=== PATIENT | female | born 1960 | race Caucasian/White ===

== ENCOUNTER → 2017-05-15 | Outpatient (CLI) | payer BC ==
[~2017-05-15] MED LIST: ESTROGEN PO
== END ==
LOC: RAD 15:35
PROVIDERS: ATTEND Nurse Practitioner
DX: Z12.31 Encounter for screening mammogram for malignant neoplasm of breast (principal)
CPT/HCPCS: 77067

== ENCOUNTER → 2018-06-04 | Outpatient (CLI) | payer BC ==
--- NOTE | 2018-06-04 19:09 | Diagnostic Imaging Report ---
INDICATION: Routine screening. Comparison is made with prior mammograms from 05/15/2017 and 05/13/2016. 2-D and 3-D bilateral screening mammography was performed with computer-aided detection (CAD) system. FINDINGS: Both breasts are heterogeneously dense, limiting the sensitivity of mammography. The parenchymal pattern is stable. No mass or malignant-appearing microcalcifications are seen. The axillae are unremarkable. IMPRESSION: No mammographic features suspicious for malignancy are identified. ACR BI-RADS Category 1: Negative. Result letter will be mailed to the patient. Note: At least 10% of breast cancer is not imaged by mammography. Dictated by: Dictated on workstation # [id number]
== END ==
LOC: RAD 14:40
PROVIDERS: ATTEND Nurse Practitioner
DX: Z12.31 Encounter for screening mammogram for malignant neoplasm of breast (principal)
CPT/HCPCS: 77067

== ENCOUNTER → 2019-05-12 | Outpatient (CLI) | payer BC | LOC: CARD 12:38 | PROVIDERS: ATTEND Internal Medicine Interventional Cardiology | DX: E78.01 Familial hypercholesterolemia (principal); I10 Essential (primary) hypertension; R06.02 Shortness of breath | CPT/HCPCS: 93306 ==

== ENCOUNTER → 2019-07-01 | Outpatient (CLI) | payer BC ==
--- NOTE | 2019-07-02 10:42 | Diagnostic Imaging Report ---
INDICATION: Routine screening. COMPARISON is made with prior mammogram from 06/04/2018 and 05/15/2017. 2-D and 3-D bilateral screening mammography was performed with CAD. Both breasts are heterogeneously dense, limiting the sensitivity of mammography. The parenchymal pattern is stable. No dominant mass or malignant appearing microcalcifications are seen. Axillae are unremarkable. IMPRESSION: BI-RADS Category 1 No mammographic features suspicious for malignancy are identified. ACR BI-RADS Category 1: Negative. Result letter will be mailed to the patient. Note: At least 10% of breast cancer is not imaged by mammography. Dictated by: Dictated on workstation # [id number]
== END ==
LOC: RAD 15:26
PROVIDERS: ATTEND Nurse Practitioner
DX: Z12.31 Encounter for screening mammogram for malignant neoplasm of breast (principal)
CPT/HCPCS: 77067

== ENCOUNTER → 2020-07-21 | Outpatient (CLI) | payer BC ==
--- NOTE | 2020-07-24 10:33 | Diagnostic Imaging Report ---
INDICATION: Routine screening. Comparison is made with prior mammogram from 07/01/2019 and 06/04/2018. 2-D and 3-D bilateral screening mammography was performed with CAD. Both breasts are heterogeneously dense, limiting the sensitivity of mammography. Occasional benign calcifications are noted. No mass or malignant-appearing microcalcifications are seen. Axillae are unremarkable. IMPRESSION: BI-RADS Category 2 No mammographic features suspicious for malignancy are identified. ACR BI-RADS Category 2: Benign findings. Result letter will be mailed to the patient. Note: At least 10% of breast cancer is not imaged by mammography. Dictated by: Dictated on workstation # [id number]
== END ==
LOC: RAD 15:15
PROVIDERS: ATTEND Surgery
DX: Z12.31 Encounter for screening mammogram for malignant neoplasm of breast (principal)
CPT/HCPCS: 77063; 77067

== ENCOUNTER 2021-02-01 09:06 | Outpatient (CLI) | payer BC ==
[~2021-02-01] VITALS: Ht 165.1 cm; Wt 76.3 kg
[2021-02-02] MEDS ORDERED: [UNRECOGNIZED DRUG - CODE] PO (12:58)
[2021-02-02] MEDS ORDERED: ENAL1TAB8 PO (12:58)
[2021-02-02] MEDS ORDERED: CETI1TAB3 PO (12:58)
[2021-02-02] MEDS ORDERED: ESTR0.5T3 PO (12:59)
== END 2021-02-02 14:59 | disposition home or self-care (01) ==
LOC: PREOP 09:06
PROVIDERS: ATTEND Internal Medicine
DX: Z01.818 Encounter for other preprocedural examination (principal)

== ENCOUNTER 2021-02-09 08:12 | Day surgery (SDC) | payer BC ==
--- NOTE | 2021-02-02 07:13 | HISTORY AND PHYSICAL ---
DATE OF SERVICE: COLONOSCOPY HISTORY AND PHYSICAL DATE OF ADMISSION: 02/09/2021. HISTORY OF PRESENT ILLNESS: The patient is a 61-year-old white female referred by Dr. Jesus for screening colonoscopy. There is a positive family history for colon cancer, index case being her mother diagnosed in her 70s and succumbed to the disease. She last underwent colonoscopy 7 years ago at which time no evidence for neoplasia was noted. She did have evidence for diverticular disease confined to the sigmoid colon. 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 She denies abdominal pain, change in bowel habit, melena or bright red blood per rectum and denies change in weight. PAST MEDICAL AND SURGICAL HISTORY: Significant for previous anemia, iron deficiency due to fibroids and menorrhagia for which she underwent total vaginal hysterectomy in 2002 and she had a large complicated ovarian cyst that required oophorectomy in 2005, past history of migraine headaches that have not troubled her much since menopause and a history of hypertension. MEDICATIONS: Include estradiol mg daily, enalapril and HCTZ, 5/12.5, Flonase and [id number] nonsedating antihistamine. 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 , grandchildren now. FAMILY HISTORY: As noted in the HPI. REVIEW OF SYSTEMS: CONSTITUTIONAL: The patient denies night sweats, chills, fever and is fully vaccinated for COVID. CARDIOVASCULAR: Denies chest pain, orthopnea, PND, pedal edema, shortness of breath, syncope or presyncope. PULMONARY: Denies cough, dyspnea on exertion or wheezing. GASTROINTESTINAL: As noted in the HPI. PHYSICAL EXAMINATION: GENERAL: Reveals a pleasant white female appeared to be in no acute distress. VITAL SIGNS: Weight 172 pounds, stable from 7 years ago. Blood pressure 120/84. HEENT: Unremarkable. CHEST: Clear to auscultation. CARDIOVASCULAR: Reveals a regular rate and rhythm without murmur, S3 or S4. ABDOMEN: Soft, supple without mass, organomegaly or tenderness. Bowel sounds positive in all four quadrants. No bruits noted. EXTREMITIES: Reveal no cyanosis, clubbing or edema. ASSESSMENT AND PLAN: The patient is set up for screening colonoscopy on 02/09, deemed to be of higher than average risk with a first-degree relative with colon cancer, index case being her mother diagnosed in her 70s. I thank you for the referral of this pleasant lady. Job ID: [id number] DocumentID: [id number] Dictated Date: 01/29/2021 16:34:55 Ring Spinner Date: 01/29/2021 17:13:57 Dictated By: LAW MORALEZ MD
[~2021-02-09] VITALS: Ht 165.1 cm; Wt 76.3 kg
[~2021-02-09 08:12] MED LIST changes: +CETI1TAB3 PO; +ENAL1TAB8 PO; +ESTR0.5T3 PO; +[UNRECOGNIZED DRUG - CODE] PO
[2021-02-09] MEDS ORDERED: LACTATED RINGERS 1,000 ML IV ONE (08:15)
[2021-02-09] MEDS ORDERED: LACTATED RINGERS 1,000 ML IV STA (08:16)
[2021-02-09] MEDS ORDERED: LIDOCAINE JELLY 2% 6 ML SYRINGE MM PRN (08:30)
[2021-02-09 08:37] VITALS: BP 125/74
[2021-02-09] MEDS ORDERED: PROPOFOL INJECTION 50 ML IV ONE (08:55)
--- NOTE | 2021-02-09 08:56 | Pre-Op Note & Conscious Sedat ---
Pre-Operative Progress Note H&P Reviewed The H&P was reviewed, patient examined and no changes noted. Date H&P Reviewed: Feb 09, 2021 Time H&P Reviewed: 08:35 Conscious Sedation Pre-Proced ASA Score 2 For ASA 3 and 4: Consider anesthesia and medical clearance. Also, for patients with a history of failed moderate sedation consider anesthesia. Airway Lungs Heart ASA score ASA 1: a normal healthy patient ASA 2: a patient with a mild systemic disease (mid diabetes, controlled hypertension, obesity ASA 3: a patient with a severe systemic disease that limits activity (angina, COPD, prior Myocardial infarction) ASA 4: a patient with an incapacitating disease that is a constant threat to life (CHF, renal failure) ASA 5: a moribund patient not expected to survive 24 hrs. (ruptured aneurysm) ASA 6: a declared brain- patient whose organs are being harvested. For emergent operations, add the letter E after the classification Mallampati Classification Grade 2 Sedation Plan Analgesia, Amnesia, Plan communicated to team members, Discussed options with patient/fam, Discussed risks with patient/fam The patient is an appropriate candidate to undergo the planned procedure, sedation, and anesthesia. The patient immediately re-assessed prior to indication. LAW MORALEZ MD Feb 09, 2021 08:56
[2021-02-09 09:25] VITALS: BP 103/57
[2021-02-09 09:30] VITALS: BP 107/56
[2021-02-09 09:35] VITALS: BP 105/59
[2021-02-09 09:53] VITALS: BP 101/55
--- NOTE | 2021-02-09 10:50 | Anesthesia-General Post-Op ---
MAC Patient Condition Mental Status/LOC: Same as Preop Cardiovascular: Satisfactory Nausea/Vomiting: Absent Respiratory: Satisfactory Pain: Controlled Complications: Absent Post Op Complications Complications None Follow Up Care/Instructions Patient Instructions None needed. Anesthesiology Discharge Order Discharge Order Patient is doing well, no complaints, stable vital signs, no apparent adverse anesthesia problems. No complications reported per nursing. HUYEN BUCKLEY CRNA Feb 09, 2021 10:50
--- NOTE | 2021-02-09 14:46 | OPERATIVE REPORT ---
DATE OF SERVICE: COLONOSCOPY SUMMARY INDICATION FOR THE PROCEDURE: Screening colonoscopy, family history for colon cancer. DESCRIPTION OF PROCEDURE: The patient was placed in the left lateral decubitus position. Prior to undergoing colonoscopy, digital rectal evaluation was performed. Anal sphincter tone was normal and the perianal reflexes intact. No abnormalities were noted on digital inspection of anal canal or distal rectal vault. The colonoscope was then inserted into the rectum and under direct visualization advanced to cecum. The cecum was identified by identification of ileocecal valve and cecal strap. Photographic documentation was obtained. Careful inspection was made as colonoscope was withdrawn. FINDINGS: There was no evidence for internal or external hemorrhoids and the rectum was unremarkable. The patient did have quite a bit of spasm in the sigmoid colon with few small diverticulum and evidence for haustral hypertrophy, but no evidence for diverticulitis. No evidence for neoplasia. The descending colon, splenic flexure, transverse colon, hepatic flexure, ascending colon and cecum were unremarkable. ASSESSMENT: Mild diverticular disease confined to the sigmoid colon was present without evidence for diverticulitis. There is no evidence for neoplasia on today's evaluation. Considering family history, I would advocate consideration for repeat screening colonoscopy in 5 years. I thank you for the referral of this pleasant lady. Job ID: [id number] DocumentID: [id number] Dictated Date: 02/09/2021 10:00:50 Infertility Medical Assistant Date: 02/09/2021 14:45:14 Dictated By: LAW MORALEZ MD
== END 2021-02-09 09:56 | disposition home or self-care (01) ==
LOC: ENDO 08:12
PROVIDERS: ATTEND Internal Medicine
DX: Z12.11 Encounter for screening for malignant neoplasm of colon (principal); K57.30 Diverticulosis of large intestine without perforation or abscess without bleeding; I10 Essential (primary) hypertension; Z80.0 Family history of malignant neoplasm of digestive organs; Z79.899 Other long term (current) drug therapy

== ENCOUNTER → 2021-08-06 | Outpatient (CLI) | payer BC ==
[~2021-08-06] MED LIST changes: +ENAL1TAB14 PO; -ENAL1TAB8 PO
--- NOTE | 2021-08-06 21:19 | Diagnostic Imaging Report ---
INDICATION: Digital mammogram bilateral screening. At this time there is no current complaint. COMPARISON: This study was compared to the prior exam of 07/21/2020, 07/01/2019 and 07/05/2017. EXAMINATION: Bilateral digital screening mammogram with CAD. 3D tomographic images were obtained and reviewed. The current study was also evaluated with a Computer Aided Detection (CAD) system. FINDINGS: The fibroglandular tissue in both breasts is heterogeneously dense. This does limit the sensitivity of this exam. Overall, there does not appear to have been any significant change when compared to the prior study. No primary or secondary sign of malignancy is noted. IMPRESSION: There is no radiographic evidence for malignancy. ACR BI-RADS Category 1: Negative. Result letter will be mailed to the patient. Note: At least 10% of breast cancer is not imaged by mammography. Dictated by: Dictated on workstation # [id number]
== END ==
LOC: RAD 10:15
PROVIDERS: ATTEND Surgery
DX: Z12.31 Encounter for screening mammogram for malignant neoplasm of breast (principal)
CPT/HCPCS: 77063; 77067

== ENCOUNTER → 2022-04-18 | Outpatient (CLI) | payer BC ==
--- NOTE | 2022-04-18 10:51 | Diagnostic Imaging Report ---
INDICATION: Generalized abdominal pain PROCEDURE: Ultrasound abdomen complete. TECHNIQUE: Multiple real-time grayscale images were obtained of the abdomen in various projections. COMPARISON: None available. FINDINGS: The liver measures 16 cm. It has normal echogenicity and is without focal mass. The portal vein is patent with normal direction of flow. There is a mobile 0.9 cm hypoechoic intraluminal structure within the gallbladder that may represent a sludge ball. The common bile duct measures up to 0.5 cm in diameter. No intrahepatic biliary dilation. The visualized portions of the pancreas are normal. Portions of the head and tail are obscured by overlying bowel gas. The kidneys are normal in size. No hydronephrosis, shadowing calculi, or suspicious mass lesion. There is a normal variant dromedary hump in the left kidney which is measured by the technologist. The spleen is normal in size measuring 9 cm. There is no focal splenic mass. The aorta and IVC are normal in caliber where seen. IMPRESSION: 1. Small sludge ball in the gallbladder without features of acute cholecystitis. 2. No biliary obstruction. Dictated by: Dictated on workstation # [id number]
--- NOTE | 2022-04-18 13:39 | Diagnostic Imaging Report ---
ABDOMEN/KUB 1VIEW INDICATION: Generalized abdominal pain COMPARISON: None available. TECHNIQUE: Supine AP view of the abdomen FINDINGS: A moderate amount of colonic stool is present. Nonobstructive bowel gas pattern. No features of free intraperitoneal air, though assessment is suboptimal on supine imaging. No abnormal soft tissue mineralizations. Degenerative disc disease in the lower lumbar spine. IMPRESSION: A moderate volume of colonic stool is present. Dictated by: Dictated on workstation # [id number]
== END ==
LOC: RAD 08:11
PROVIDERS: ATTEND Internal Medicine
DX: K82.8 Other specified diseases of gallbladder (principal); R10.84 Generalized abdominal pain
CPT/HCPCS: 74018; 76700

== ENCOUNTER 2022-05-21 05:35 | Outpatient (CLI) | payer BC ==
[~2022-05-21] VITALS: Ht 162.5 cm; Wt 78.2 kg
== END 2022-05-21 09:12 | disposition home or self-care (01) ==
LOC: PREOP 05:35
PROVIDERS: ATTEND Surgery
DX: Z01.818 Encounter for other preprocedural examination (principal)

== ENCOUNTER 2022-05-23 10:50 | Day surgery (SDC) | payer BC ==
[2022-05-23] VITALS (10 sets, daily range): BP systolic 120–137; BP diastolic 62–72
[~2022-05-23] VITALS: Ht 162.5 cm; Wt 78.2 kg
[2022-05-23] MEDS ORDERED: BUP/EPI 0.25% 1:200,000 (MARCAINE) 30 ML VIAL ONE (11:04)
[2022-05-23] MEDS ORDERED: BUP/EPI 0.25% 1:200,000 (MARCAINE) 30 ML VIAL INJ ONE (11:15)
[2022-05-23] MEDS ORDERED: ceFAZolin INJECTION 2,000 MG in NS (IVPB) 50 ML IV ONE (11:15)
[2022-05-23] MEDS: LACTATED RINGERS 1,000 ML IV PRN ×2 (11:24→13:38)
[2022-05-23] MEDS ORDERED: ONDANSETRON 4 MG/2 ML (SDV) Z0FRAN ONE (12:01)
[2022-05-23] MEDS ORDERED: MIDAZOLAM 2 MG/2 ML (VERSED) VIAL ONE (12:01)
[2022-05-23] MEDS ORDERED: LIDOCAINE PF 2% 5 ML (XYLOCAINE) VIAL ONE (12:01)
[2022-05-23] MEDS ORDERED: ROCURONIUM 10 MG/ML 5 ML SYRINGE IV ONE (12:01)
[2022-05-23] MEDS ORDERED: fentaNYL INJ 100 MCG/2 ML AMP ONE (12:01)
[2022-05-23] MEDS ORDERED: proPOfol 200 MG/20 ML (DIPRIVAN) VIAL IV ONE (12:01)
--- NOTE | 2022-05-23 12:17 | Progress Note-Pre Operative ---
Pre-Operative Progress Note Date H&P Reviewed: May 23, 2022 Time H&P Reviewed: 12:00 History & Physical: H&P Reviewed, Patient Examed, No changes noted Pre-Operative Diagnosis: Chronic calculous cholecystitis IGNACIA CRUZ APRN May 23, 2022 12:17
[2022-05-23] MEDS ORDERED: HYDR-3817 PO (12:18)
--- NOTE | 2022-05-23 12:18 | Discharge Inst-Surgical ---
D/C Lap Instructions-KIDO Reconcile Patient Problems Problems Reviewed?: Yes New, Converted, or Re-Newed RX: RX on Chart Follow Up Appt in 2 weeks Activity as tolerated No driving for 24 hours No driving while on pain medications Incentive Spirometry use every 2 hours while awake Regular Diet Symptoms to Report: Fever over 101 degree F, Nausea/Vomiting Infection Signs and Symptoms to report: Increased redness, Foul odor of wound, Increased drainage Bathing instructions: May shower Operative Area Clean/Dry; Keep incision clean/dry If any problems/questions: Contact your physician or go to Emergency Room IGNACIA CRUZ APRN May 23, 2022 12:18
[2022-05-23] MEDS ORDERED: morphine INJ 10 MG/ML 1ML (SYR OR VIAL) IVP PRN (12:30)
[2022-05-23] MEDS ORDERED: HYDROcodone/APAP 5 MG/325 MG (LORTAB) TAB PO ONE (12:30)
[2022-05-23] MEDS ORDERED: ONDANSETRON 4 MG/2 ML (SDV) Z0FRAN IVP PRN ×2 (12:30→13:30)
[2022-05-23] MEDS ORDERED: ACETAMINOPHEN 325 MG TABLET PO PRN (12:30)
[2022-05-23] MEDS ORDERED: GLYCOPYRROLATE 0.2 MG/ML (ROBINUL) 2 ML VIAL ONE (13:05)
[2022-05-23] MEDS ORDERED: NEOSTIGMINE 3 MG/3 ML VIAL ONE (13:05)
[2022-05-23] MEDS ORDERED: KETOROLAC 30 MG/ML VIAL ONE (13:05)
--- NOTE | 2022-05-23 13:20 | Progress Note-Post Operative ---
Post-Operative Progess Note Surgeon (s)/Special Services Director (s) Surgeon JANNETH MENARD MD Special Services Director: josé miguel bryson LABOR STANDARDS DIRECTOR Pre-Operative Diagnosis Chronic calculous cholecystitis Post-Operative Diagnosis same Procedure & Operative Findings Date of Procedure 05/23/22 Procedure Performed/Findings laparoscopic cholecystectomy Anesthesia Type get Estimated Blood Loss Estimated blood loss (mL): minimal Specimens/Packing Specimens Removed gallbladder JANNETH MENARD MD May 23, 2022 13:20
--- NOTE | 2022-05-23 13:25 | Anesthesia-General Post-Op ---
General Patient Condition Mental Status/LOC: Same as Preop Cardiovascular: Satisfactory Nausea/Vomiting: Absent Respiratory: Satisfactory Pain: Controlled Complications: Absent Post Op Complications Complications None Follow Up Care/Instructions Patient Instructions None needed. Anesthesia/Patient Condition Patient Condition Patient is doing well, no complaints, stable vital signs, no apparent adverse anesthesia problems. No complications reported per nursing. KEILA TOLBERT CRNA May 23, 2022 13:25
[2022-05-23] MEDS ORDERED: morphine INJ 10 MG/ML 1ML (SYR OR VIAL) ONE (13:30)
[2022-05-23] MEDS ORDERED: morphine INJ 10 MG/ML 1ML (SYR OR VIAL) IVP ONE (13:30)
--- NOTE | 2022-05-23 22:29 | OPERATIVE REPORT ---
DATE OF SERVICE: 05/23/2022 ATTENDING PRIMARY CARE PHYSICIAN: Rula Jesus DO PREOPERATIVE DIAGNOSIS: Symptomatic chronic calculous cholecystitis. POSTOPERATIVE DIAGNOSIS: Symptomatic chronic calculous cholecystitis. PROCEDURE: Laparoscopic cholecystectomy. SURGEON: Janneth Menard MD ANESTHESIA: General endotracheal. ESTIMATED BLOOD LOSS: Minimal. FINDINGS: Small gallstones, thick bile. DISPOSITION: The patient tolerated the procedure well. INDICATIONS: The patient is a 62-year-old female who has had symptomatic biliary sludge. She reports that she has had several episodes before in the past and after thinking back, she may have had issues even spanning several years. She had a very bad episode that was significant in the right upper abdominal quadrant, which lasted for 24 hours. She had an ultrasound of her gallbladder, which did show sludge versus biliary stones. DESCRIPTION OF PROCEDURE: The patient was brought to the operating room, laid supine on the table. After adequate IV pain and sedative medications and general endotracheal intubation, the abdomen was prepped and draped in standard surgical fashion. A 0.5% Marcaine with epinephrine was then used to anesthetize the overlying skin and left upper abdominal quadrant and transverse skin incision made using a 15 blade. An 0 silk suture was applied to the medial aspect of the incision for retraction. A Veress needle inserted with a low opening pressure of 0 mmHg. The abdomen was then insufflated to 15 mmHg pressure. The Veress needle removed and a 5 mm XL trocar was placed followed by a 5 mm 45-degree angle laparoscope visualizing the peritoneal cavity. A 4-quadrant abdominal exploration was performed. There were omental adhesions towards the gallbladder with a distended gallbladder, no gallbladder wall thickening. Under direct visualization, we then procedure placed a supraumbilical 10 mm port after the skin and peritoneal lining were anesthetized using 0.5% Marcaine with epinephrine and a transverse skin incision made using a #15 blade. In a similar manner, a right upper abdominal quadrant 5 mm port was placed. The omental adhesions were then taken down using electrocautery on the hook instrument and the fundus of the gallbladder was then retracted anteriorly and superiorly. The hepatoduodenal ligament was then dissected using blunt dissection as well as electrocautery on the hook instrument as well as the [place] dissector. The entire critical view of safety was identified including the triangle of Calot as well as the cystic duct and artery as the only two structures going into the gallbladder as well as the cystic plate behind the proximal gallbladder. A timeout was then taken and the cystic duct and artery were then clipped proximally and distally, and cut with EndoShears. The gallbladder was then dissected off of the liver bed using cautery and hook instrument with visualization with good hemostasis as well as no leaking ducts of Luschka. The gallbladder was removed through the 10 mm port site using an EndoCatch bag. The fascia and peritoneum to the 10 mm port site was then closed under direct visualization using a Jatin-Abraham device and 0 Vicryl suture. The abdomen was desufflated and the remaining ports were removed. All skin incisions were closed using 4-0 Monocryl running subcuticular sutures. Wounds were then cleaned and covered up with Dermabond. The patient tolerated the procedure well. POSTOPERATIVE PLAN: We will start IV and oral pain medication as well as a clear liquid diet. Once she is tolerating clears with good pain control with oral pain medications and ambulating well, we will discharge her home where she will be instructed to do no heavy lifting or exertion for the next 2 weeks. Job ID: [id number] DocumentID: [id number] Dictated Date: 05/23/2022 13:06:37 Wood Type Finisher Date: 05/23/2022 22:27:00 Dictated By: JANNETH MENARD MD
== END 2022-05-23 15:12 | disposition home or self-care (01) ==
LOC: SDC 10:50
PROVIDERS: ATTEND Surgery
DX: K80.10 Calculus of gallbladder with chronic cholecystitis without obstruction (principal); K82.8 Other specified diseases of gallbladder
CPT/HCPCS: 87081

== ENCOUNTER → 2022-08-15 | Outpatient (CLI) | payer BC ==
[~2022-08-15] MED LIST changes: +HYDR-3817 PO
--- NOTE | 2022-08-15 11:48 | Diagnostic Imaging Report ---
Indication: Routine screening. Comparison is made with prior mammograms 08/06/2021 and 07/21/2020. 2-D and 3-D bilateral screening mammography was performed with CAD. Both breasts are heterogeneously dense, limiting the sensitivity of mammography. The parenchymal pattern is stable. No dominant mass or malignant-appearing microcalcifications are seen. Axillae are unremarkable. IMPRESSION: BI-RADS Category 1. No mammographic features suspicious for malignancy are identified. ACR BI-RADS Category 1: Negative. Result letter will be mailed to the patient. Note: At least 10% of breast cancer is not imaged by mammography. Dictated by: Dictated on workstation # [id number]
== END ==
LOC: RAD 09:53
DX: Z12.31 Encounter for screening mammogram for malignant neoplasm of breast (principal)
CPT/HCPCS: 77063; 77067